=== PATIENT | male | born 1990 | race Caucasian/White ===

== ENCOUNTER 2021-06-01 12:08 | Emergency (ER) | payer BC, SELFPAY ==
[2021-06-01 13:52] VITALS: BP 0/0; PULSE 0; RESP 0; TEMP -17.7; TEMP 0
== END 2021-06-01 13:53 | disposition left against medical advice (07) ==
LOC: UTC 12:17
PROVIDERS: Emergency Provider Nurse Practitioner Family; PCP Family Medicine
DX: Z53.21 Procedure and treatment not carried out due to patient leaving prior to being seen by health care provider (principal)

== ENCOUNTER 2022-10-03 12:04 | Emergency (ER) | payer OTHER, SELFPAY ==
[2022-10-03 12:14] VITALS: BMI 31.8
--- NOTE | 2022-10-03 12:14 | XR_ITS ---
FINAL REPORT CLINICAL HISTORY: right rib pain FINDINGS: Two views of the chest were obtained. The heart size and pulmonary vascularity are within normal limits. The mediastinum is normal. No acute pulmonary abnormality is identified. There is no pneumothorax. The bony thorax is intact. IMPRESSION: No active cardiopulmonary disease. Reviewed, Interpreted and Dictated by Tj Tyler III, MD Transcribed by Tiffanie Melissa Authenticated and [facility]
[2022-10-03 12:30] VITALS: BP 119/78; PULSE 70; RESP 19; TEMP 36.7; O2SAT 98; BMI 31.8
--- NOTE | 2022-10-03 12:40 | EXP.UTC ---
Discharge Plan Disposition Patient Disposition: Home, Self-Care Condition: Good Prescriptions Prescriptions: New ibuprofen [IBU] 800 mg tablet 800 mg PO Q8HP PRN (Reason: Moderate Pain) Qty: 30 0RF No Action methocarbamol 500 MG tablet 500 mg PO BIDP PRN (Reason: Muscle Spasm) Qty: 30 0RF Referrals Follow up/Referrals: Miki Engel MD [Primary Care Provider] - See instructions Activity Restrictions/Add. Instructions Additional Instructions/Restrictions: Take the medications as directed. Follow up with your regular doctor. GO TO THE ER FOR ANY WORSENING SYMPTOMS Clinical Impressions Clinical Impression: Contusion of rib on right side Discharge ED Provider: Adarsh Ovalles [facility] General Stated complaint: [id number] right rib pain Mode of Arrival: Ambulatory Source of Information: Patient Limitations: No Limitations Time Seen by Provider: 10/03/22 12:40 Description of Symptoms (Recalled from Triage Doc. by RN): rib pain right side HEENT Symptoms (Recalled from RN notes): No Resp Symptoms (Recalled from RN notes): No Skin Symptoms (Recalled from RN notes): No MS Symptoms (Recalled from RN notes): Yes (right rib) Functional Status (Recalled from RN notes): n/a History of Present Illness Provider Complaint: He states that around 2 week ago he fell and came down on the right side of his chest. At the time he did not believe he was hurt. But, he has had right rib pain since then. The pain is worse with deep breathing and coughing. He states that ibuprofen does help the pain, but it comes right back when it wears off. Related Data Previous Rx's Medication Instructions Recorded methocarbamol 500 mg tablet 500 mg PO BIDP PRN Muscle Spasm 10/31/19 #30 tabs ibuprofen 800 mg tablet (IBU) 800 mg PO Q8HP PRN Moderate Pain 10/03/22 #30 tabs Allergies Allergy/AdvReac Type Severity Reaction Status Date / Time No Known Allergies Allergy Verified 10/03/22 12:40 Worker's Comp Is this a Worker's Comp case?: No [facility] Disclaimer: The information contained in this section may have been updated after the patient was seen, as this information can be updated by other users. Social History Smoking Status: Never smoker alcohol intake: never current occupational status: other Travel in the last 8 weeks: None ROS Obtained: Yes All systems reviewed & no additional complaints except as documented Constitutional Constitutional: Denies chills and Denies fever(s) Eyes Eyes: Denies eye discharge ENT Ears, Nose, Mouth, and Throat: Denies dizziness, Denies otalgia and Denies sore throat Cardiovascular Cardiovascular: Reports as per HPI and Denies dyspnea Respiratory Respiratory: Denies shortness of breath, Denies chest congestion, Denies cough, Denies dyspnea, Denies stridor and Denies wheezing Gastrointestinal Gastrointestingal: Denies nausea or vomiting Musculoskeletal Musculoskeletal: Reports system reviewed and no additional complaints, except as documented and Denies arthralgias Integumentary/Breasts Skin/Breast: Denies rash Neurologic Neurologic: Denies dizziness and Denies paresthesias Allergic/Immunologic Allergic/Immunologic: Denies wheezing Physical Exam General General appearance: alert and in no apparent distress Head Head exam: atraumatic, normocephalic and normal inspection Eye Eye exam: Present normal appearance, PERRL and EOMI ENT ENT exam: Present normal exam, normal oropharynx, mucous membranes moist, TM's normal bilaterally and normal external ear exam Neck Neck exam: Present normal inspection, full ROM and trachea midline; Absent meningismus or lymphadenopathy Chest Chest inspection: Present symmetric chest wall rise and tenderness Respiratory Respiratory exam: Present normal lung sounds bilaterally; Absent respiratory distress, wheezes, stridor or accessory muscle use Cardiovascular Cardiovascular exam: Present regular rate and normal rhythm; Absent JVD
--- NOTE | 2022-10-03 13:02 | XR_ITS ---
FINAL REPORT CLINICAL HISTORY: fall 2 weeks ago, right rib pain FINDINGS: RIGHT RIBS Four views of the right ribs were obtained. There is mild irregularity of the 9th distal right rib. Nondisplaced fracture not excluded. There is no pneumothorax. No other bony abnormality is identified. IMPRESSION: Mild irregularity of the 9th distal right rib. Nondisplaced fracture not excluded. Reviewed, Interpreted and Dictated by Tj Tyler III, MD Transcribed by Maye Celis Authenticated and [facility]
[2022-10-03 13:55] VITALS: BP 119/78; PULSE 70; RESP 19; TEMP 36.7; O2SAT 98
== END 2022-10-03 13:55 | disposition home or self-care (01) ==
PROVIDERS: Emergency Provider Nurse Practitioner Family; PCP Family Medicine
DX: S20.211A Contusion of right front wall of thorax, initial encounter (principal); W19.XXXA Unspecified fall, initial encounter
CPT/HCPCS: 71046; 71101; 99213; G0463